=== PATIENT | male | born 1960 | race Caucasian/White ===

== ENCOUNTER 2019-04-23 14:43 | Emergency (ER) | payer BC ==
[2019-04-23 16:21] LABS: Bacteria/HPF None Seen HPF (None Seen); Bilirubin Negative (Negative); Blood, Urine 1+ (Negative); Clarity Clear (Clear); Glucose, Urine (Dipstick) Normal (Negative); Leukocyte Negative Leu/uL (Negative); Mucous/LPF 1+ LPF (<2+); Nitrite Negative (Negative); Protein, Urine (Dipstick) Negative (Neg-Trace); Squamous Epithelial None Seen HPF (0-3); WBC/HPF 0-3 HPF (0-3)
[2019-04-23 16:34] LABS: #Basophils 0.1 thou/uL (0.0-0.2); #Eosinphils 0.4 thou/uL (0.0-0.7); #Lymphocytes 2.7 thou/uL (1.20-3.40); #Monocytes 0.8 thou/uL (0.11-0.59); #Neutrophils 7.7 thou/uL (1.40-6.50); %Basophils 0.5 % (0.0-1.0); %Lymphocytes 23.4 % (21.0-51.0); %Monocytes 6.6 % (0.0-10.0); %Neutrophils 66.4 % (42.0-75.0); Hemoglobin 15.3 g/dL (14.0-18.0); Mean Corpuscular HGB CONC 33.1 g/dL (32.0-36.0); Mean Corpuscular Hemoglobin 29.5 pg (27.0-31.0); Mean Corpuscular Volume 89.1 fL (78.0-98.0); Mean Platelet Volume 7.7 fL (7.4-10.4); Platelet Count 283 thou/uL (130-400); Red Blood Cell (RBC) Count 5.17 mill/uL (4.70-6.10); White Blood Cell (WBC) Count 11.6 thou/uL (4.8-10.8)
[2019-04-23 16:41] LABS: PTT 28.4 SEC (22.9-36.1); Prothrombin Time 13.1 SEC (12.0-14.7)
[2019-04-23 16:56] LABS: ALT (SGPT) 26 U/L (8-55); AST (SGOT) 16 U/L (5-34); Albumin 4.7 g/dL (3.5-5.0); Alkaline Phosphatase 84 U/L (40-110); Anion Gap 15 mmol/L (10-20); BUN (Urea Nitrogen) 15 mg/dL (8.4-25.7); Bilirubin, Total 0.6 mg/dL (0.2-1.2); Calc. Creatinine Clearance 0 mL/min (70-130); Calcium 9.8 mg/dL (7.8-10.44); Carbon Dioxide 24 mmol/L (22-29); Chloride 103 mmol/L (98-107); Estimated GFR-MDRD 72; Globulin 2.8 g/dL (2.4-3.5); Glucose 91 mg/dL (70-105); Potassium 4.3 mmol/L (3.5-5.1); Protein, Total 7.5 g/dL (6.0-8.3); Sodium 138 mmol/L (136-145)
--- NOTE | 2019-04-23 16:59 | CT ---
Exam: Abdomen CT without contrast Pelvic CT without contrast HISTORY: Hematuria. COMPARISON: None FINDINGS: Abdomen CT: Lung bases:Calcified granulomas in the left lower lobe. Heart size: Normal heart size. No pericardial effusion Aorta: Normal caliber. Minimal atherosclerosis. Solid organs: Limited evaluation due to the lack of intravenous contrast administration. Grossly no s olid organ abnormality. The exception is that there are 2 masses in the lateral limb of the left adrenal gland. There is a component that is predominantly macroscopic in terms of fat attenuation. Th ere is a second component that is mixed attenuation and has an Hounsfield units of -13. There appear to be 2 separate 1 cm adenomas of the lateral limb of the left gland. Lymph nodes: No gastrohepatic, retrocrural or periportal lymphadenopathy Gallbladder: Unremarkable Mesentery: No mass, lymphadenopathy, free air or free fluid Kidneys: Bilaterally, no hydronephrosis, nephrolithiasis or perinephric fat stranding. Bilateral uret ers have a normal caliber. No hydroureter, periureteral fat stranding or ureterolithiasis. Alimentary canal: Limited evaluation due to lack of oral contrast. No evidence of bowel obstruction. Unremarkable ileocecal junction. Scattered fecal material in a nondistended, nondilated colon. Occasional diverticulum. No diverticulitis. Normal caliber appendix. CT PELVIS: No mass, adenopathy, free air or free fluid. Unremarkable prostate gland. Urinary bladder: Unremarkable. Osseous structures: No lytic or blastic lesions IMPRESSION: 1. No evidence of obstructive uropathy. 2. Two separate adrenal adenomas involving the lateral limb of the left adrenal gland. Transcribed Date/Time: 04/23/2019 5:07 PM
== END 2019-04-23 18:28 | disposition home or self-care (01) ==
LOC: ERS 14:43
DX: R31.0 Gross hematuria (principal); E11.9 Type 2 diabetes mellitus without complications; I10 Essential (primary) hypertension; E78.00 Pure hypercholesterolemia, unspecified; Z79.899 Other long term (current) drug therapy
CPT/HCPCS: 36415; 74176; 80053; 81003; 81015; 85025; 85610; 85730

== ENCOUNTER 2019-05-28 12:17 | Outpatient (CLI) | payer BC ==
[~2019-05-28 12:17] MED LIST: Iopamidol-370 76% 500 ML 1 ML ONE
--- NOTE | 2019-05-28 13:53 | CT ---
CT ABDOMEN WITH AND WITHOUT CONTRAST: CT PELVIS WITH AND WITHOUT CONTRAST: HISTORY: Gross hematuria. COMPARISON: None. TECHNIQUE: Abdomen and pelvic CT is performed with and without contrast following urogram protocol. Coronal refo rmatted images are submitted for interpretation. FINDINGS: ABDOMEN Lung bases: Scar/atelectasis. Heart: Normal heart size. No significant pericardial fluid. Aorta: Normal caliber. No periaortic fat stranding. Liver: Appropriate enhancement. No enhancing masses. Spleen: Appropriate enhancement. Pancreas: Appropriate enhancement. Adrenal glands: Symmetric enhancement. Lymph nodes: No gastrohepatic, retrocrural or periportal lymphadenopathy. Portal vein: Patent. Gallbladder: Unremarkable. Kidneys: Noncontrast: No hydronephrosis, nephrolithiasis or perinephric fat stranding. No hydroureter, periure teral fat stranding or ureterolithiasis. Contrast: Symmetric enhancement of the kidneys. There is a 0.5 cm exophytic density emanating from th e mid pole left kidney. Intrinsic hyperdensity with an attenuation coefficient of 74 Hounsfield units. On the arterial phase images there is an attenuation coefficient of 32 Hounsfield units. On th e delayed images there is an attenuation coefficient of 82 Hounsfield units. Delayed: Symmetric excretion into a decompressed intrarenal and extrarenal collecting system. No fill ing defects. Mesentery: No mass, nephropathy, free air or free fluid. Alimentary canal: Limited evaluation due to lack of oral contrast administration. No evidence of shante l obstruction. The ileocecal junction is normal. Truncated appendix does not appear to have inflammatory change. Scattered fecal material in a nondist ended/nondilated colon. PELVIS Reproductive organs and pelvis: No mass, lymphadenopathy, free air or free fluid. Urinary bladder: Contrast in the dependent portion of the urinary bladder. No obvious mucosal abnorma lity or filling defect. No lytic or blastic lesions in the osseous structures. IMPRESSION: 1. No evidence of obstructive uropathy. 2. No evidence of enhancing masses in the left or right kidney. 3. Subcentimeter exophytic density in the mid pole of the left kidney, likely representing a small co mplex cyst. Month follow-up imaging is recommended. Follow-up imaging with abdomen MRI may be beneficial for better interrogation. CODE T Transcribed Date/Time: 05/28/2019 2:08 PM
== END 2019-05-28 12:18 | disposition home or self-care (01) ==
LOC: BICCT 12:17
PROVIDERS: ATTEND Urology
DX: R31.0 Gross hematuria (principal); N28.89 Other specified disorders of kidney and ureter
CPT/HCPCS: 74178; 82565; Q9967

== ENCOUNTER 2020-03-01 07:46 | Outpatient (CLI) | payer BC ==
--- NOTE | 2020-03-01 10:36 | MRI ---
MRI ABDOMEN WITH AND WITHOUT IV CONTRAST: Date: 03/01/2020 HISTORY: Complex renal cyst. FINDINGS: Correlation made with CT scan of 05/28/2019. There is signal loss on the [id number] images in the liver parenchyma consistent with fatty infiltr ation. No hepatic mass or abnormal biliary ductal dilatation is seen. The spleen, pancreas, gallbladder, right adrenal gland, and right kidney are normal. The 5.0 mm exophytic nodule arising from the mid pole of the left kidney demonstrates high T1 signal without postcontrast enhancement and is consistent with a hemorrhagic/proteinaceous cyst. A 1.0 cm microscopic fat-containing nodule is seen in the lateral limb of the left adrenal gland cons istent with myelolipoma. A smaller lesion in the body of the left adrenal gland appears to lose signa l on [id number] imaging and is consistent with a tiny adenoma. No ascites or lymphadenopathy seen. The aorta is of normal caliber. There are degenerative changes in the spine. IMPRESSION: 1. Benign findings in the left kidney and left adrenal gland. 2. Fatty liver. POS: [facility]
== END 2020-03-01 07:47 | disposition home or self-care (01) ==
LOC: MRI 07:46
PROVIDERS: ATTEND Urology
DX: N28.1 Cyst of kidney, acquired (principal); K76.0 Fatty (change of) liver, not elsewhere classified; E27.8 Other specified disorders of adrenal gland; N28.89 Other specified disorders of kidney and ureter
CPT/HCPCS: 74183; 82565

== ENCOUNTER 2020-08-30 16:34 | Outpatient (CLI) | payer BC | END 2020-08-30 16:35 | disposition home or self-care (01) | LOC: RAD 16:34 | PROVIDERS: ATTEND Family Medicine | DX: T17.908A Unspecified foreign body in respiratory tract, part unspecified causing other injury, initial encounter (principal) | CPT/HCPCS: 71046 ==

== ENCOUNTER 2020-11-19 09:59 | Outpatient (CLI) | payer BC | END 2020-11-19 10:00 | disposition home or self-care (01) | LOC: BICRAD 09:59 | PROVIDERS: ATTEND Family Medicine | DX: M25.559 Pain in unspecified hip (principal) ==

== ENCOUNTER 2020-12-23 12:31 | Outpatient (CLI) | payer BC | END 2020-12-23 12:32 | disposition home or self-care (01) | LOC: BICMRI 12:31 | PROVIDERS: ATTEND Family Medicine | DX: M25.551 Pain in right hip (principal); M16.11 Unilateral primary osteoarthritis, right hip ==

== ENCOUNTER 2023-03-20 10:46 | Outpatient (CLI) | payer BC | END 2023-03-20 10:47 | disposition home or self-care (01) | LOC: SCSRAD 10:46 | PROVIDERS: ATTEND Family Medicine | DX: M54.6 Pain in thoracic spine (principal); M47.814 Spondylosis without myelopathy or radiculopathy, thoracic region | CPT/HCPCS: 72072 ==

== ENCOUNTER 2024-05-09 12:59 | Outpatient (CLI) | payer BC | END 2024-05-09 13:00 | disposition home or self-care (01) | LOC: SCSRAD 12:59 | DX: R06.00 Dyspnea, unspecified (principal) | CPT/HCPCS: 71046 ==

== ENCOUNTER 2024-07-09 15:04 | Outpatient (CLI) | payer BC | END 2024-07-09 15:05 | disposition home or self-care (01) | LOC: SCSRAD 15:04 | PROVIDERS: ATTEND Family Medicine | DX: M54.50 Low back pain, unspecified (principal); M54.2 Cervicalgia; M47.814 Spondylosis without myelopathy or radiculopathy, thoracic region; M47.812 Spondylosis without myelopathy or radiculopathy, cervical region | CPT/HCPCS: 72040; 72072 ==

== ENCOUNTER 2025-04-24 19:17 | Emergency (ER) | payer BC, MEDICARE ==
[2025-04-24 20:45] LABS: ALT (SGPT) 56 U/L (Less than 45); AST (SGOT) 40 U/L (11-34); Albumin 4.6 g/dL (3.1-4.5); Alkaline Phosphatase 63 U/L (40-110); Anion Gap 16 mmol/L (10-20); BUN (Urea Nitrogen) 20 mg/dL (8.4-25.7); Bilirubin, Total 0.7 mg/dL (0.3-1.2); Calc. Creatinine Clearance 0 mL/min (70-130); Calcium 10.6 mg/dL (7.8-10.44); Carbon Dioxide 24 mmol/L (23-31); Chloride 105 mmol/L (98-107); Globulin 2.9 g/dL (2.4-3.5); Glucose 110 mg/dL (80-115); Potassium 4.6 mmol/L (3.5-5.1); Sodium 140 mmol/L (136-145)
[2025-04-24 21:02] LABS: Hematocrit 54.7 % (42.0-52.0); Hemoglobin 17.9 g/dL (14.0-18.0); Mean Corpuscular Hemoglobin 30.2 pg (27.0-31.0); Mean Corpuscular Volume 92.2 fL (78.0-98.0); Platelet Count 251 10x3/uL (130-400); Red Blood Cell (RBC) Count 5.93 mill/uL (4.70-6.10); White Blood Cell (WBC) Count 12.12 10x3/uL (4.8-10.8)
[2025-04-24 21:34] LABS: Platelet Adequacy Comment Platelets Normal
== END 2025-04-24 22:28 | disposition home or self-care (01) ==
LOC: ERS 19:17
DX: R42 Dizziness and giddiness (principal); R29.700 NIHSS score 0; E11.9 Type 2 diabetes mellitus without complications; I10 Essential (primary) hypertension
CPT/HCPCS: 36415; 71045; 80053; 83880; 84484; 85025; 85379; 93005